=== PATIENT | male | born 1985 | race African-American/Black ===

== ENCOUNTER 2023-07-16 17:49 | Emergency (ER) | payer OTHER ==
[2023-07-16 18:11] VITALS: BP 135/84; PULSE 85; RESP 20; TEMP 98.4; BMI 39.0
[2023-07-16] MEDS ORDERED: PHENYLEPHRINE HCL 10 MG/1 ML SINGLE DOSE VIAL NR ONE (18:57)
[2023-07-16] MEDS ORDERED: PHENYLEPHRINE HCL 10 MG/1 ML SINGLE DOSE VIAL ONE ×2 (19:05→19:08)
[2023-07-16] MEDS ORDERED: LIDOCAINE HCL 1%, 10 MG/ML (20ML VIAL) ONE ×2 (19:17→21:13)
[2023-07-16 20:21] LABS: VENOUS BASE EXCESS -19.4 mmol/L (-2-2)
[2023-07-16 20:24] LABS: VENOUS PCO2 87.7 mmHg (38-52); VENOUS PH 6.875 (7.310-7.410)
[2023-07-16] MEDS ORDERED: LACTATED RINGERS SOLUTION 1000 ML INFUS.BAG IV ONE (20:52)
[2023-07-16] MEDS ORDERED: LIDOCAINE HCL 1%, 10 MG/ML (50 mL VIAL) NR ONE (21:06)
[2023-07-16 22:07] LABS: BASO % 0.4 % (0-2.0); EOS % 2.5 % (0-4.5); HEMATOCRIT 37.9 % (35.4-49); LYMPH % 35.8 % (8-40); MCH 27.6 pg (25.7-33.7); MCHC 34.3 g/dl (32.0-35.9); MEAN CELL VOLUME 80.5 fl (80-96); MEAN PLT VOLUME 7.1 fl (7.5-11.1); MONO % 5.8 % (3.8-10.2); NEUT % 55.5 % (42.8-82.8); PLATELET COUNT 249 10^3/uL (134-434); RBC 4.71 M/mm3 (4.00-5.60); RDW 14.9 % (11.9-15.9); WHITE BLOOD COUNT 5.8 K/mm3 (4.0-10.0)
[2023-07-16 22:08] LABS: EPI CELLS 1 /uL (0-25.1); HYALINE CASTS 0 /uL (0-3.1); PH,URINE 6.5 (5.0-8.0); URINE APPEARANCE CLEAR; URINE BACTERIA 0 /uL (0-1359); URINE BILIRUBIN NEGATIVE (NEGATIVE); URINE COLOR YELLOW; URINE GLUCOSE (UA) NEGATIVE (NEGATIVE); URINE KETONE NEGATIVE (NEGATIVE); URINE LEUK ESTERASE NEGATIVE (NEGATIVE); URINE NITRITE NEGATIVE (NEGATIVE); URINE PROTEIN NEGATIVE (NEGATIVE); URINE RBC 37 /uL (0-23.9); URINE UROBILINOGEN 0.2 mg/dL (0.2-1.0); URINE WBC 1 /uL (0-25.8)
[2023-07-16 22:12] LABS: INR 1.19 (0.83-1.09); PROTHROMBIN TIME (PATIENT) 13.8 SEC (9.7-13.0)
[2023-07-16 22:19] LABS: POTASSIUM 3.8 mmol/L (3.5-5.1)
[2023-07-16 22:20] LABS: CALCIUM 8.5 mg/dL (8.5-10.1)
[2023-07-16 22:22] LABS: ALBUMIN 4.2 g/dl (3.4-5.0); BLOOD UREA NITROGEN 7.8 mg/dL (7-18)
[2023-07-16 22:23] LABS: CREATININE 0.9 mg/dL (0.55-1.3)
[2023-07-16 22:25] LABS: BILIRUBIN,TOTAL 0.5 mg/dL (0.2-1)
== END 2023-07-17 01:16 | disposition home or self-care (01) ==
LOC: JER 17:49
PROC: 0V9SXZZ Drainage of Penis, External Approach (ICD-10-PCS; principal; 2023-07-16)
DX: N48.30 Priapism, unspecified (principal); S83.90XA Sprain of unspecified site of unspecified knee, initial encounter; M25.569 Pain in unspecified knee; M72.2 Plantar fascial fibromatosis; N48.89 Other specified disorders of penis; J40 Bronchitis, not specified as acute or chronic; X58.XXXA Exposure to other specified factors, initial encounter
CPT/HCPCS: 36415; 80053; 81003; 82803; 85025; 85610; 86850; 86900; 86901; 99285-25

== ENCOUNTER 2024-10-12 05:24 | Day surgery (SDC) | payer BC, OTHER ==
[2024-10-10 11:51] VITALS: BMI 38.3
[2024-10-12 12:20] VITALS: RESP 18
[2024-10-12] MEDS: ceFAZolin SODIUM 1 GM VIAL IVPB ONE (13:35)
[2024-10-12] MEDS ORDERED: GENTAMICIN SO4 80 MG/2 ML VIAL ONE (14:09)
[2024-10-12] MEDS ORDERED: VANCOMYCIN 1,000 MG VIAL (RESTRICTED TO ID ONLY) ONE (14:09)
[2024-10-12] MEDS ORDERED: ROCURONIUM BROMIDE 50 MG/5 ML SYRINGE ONE (14:50)
[2024-10-12] MEDS ORDERED: PROPOFOL 40 ML ONE (14:50)
[2024-10-12] MEDS ORDERED: MIDAZOLAM HCL 2 MG/2 ML SINGLE DOSE VIAL ONE (14:50)
[2024-10-12] MEDS ORDERED: LIDOCAINE HCL 2% 100 MG/5 ML DISP.SYRIN ONE (14:51)
[2024-10-12] MEDS ORDERED: ONDANSETRON 4 MG/2 ML VIAL ONE (14:51)
[2024-10-12] MEDS ORDERED: ceFAZolin SODIUM 1 GM VIAL ONE (14:51)
[2024-10-12] MEDS ORDERED: DEXAMETHASONE SOD PHOSPHATE 4 MG/1 ML VIAL ONE (14:51)
[2024-10-12] MEDS ORDERED: ONDANSETRON 4 MG/2 ML VIAL IVPUSH PRN (15:07)
[2024-10-12] MEDS ORDERED: LACTATED RINGERS SOLUTION 1,000 ML IV SCH (15:15)
[2024-10-12] MEDS: BUPIVACAINE HCL/PF 0.5% (5MG/ML) 10 ML VIAL IJ ONE ×2 (15:43)
[2024-10-12] MEDS: LIDOCAINE HCL 1%, 10 MG/ML (50 mL VIAL) INF ONE ×2 (15:43)
[2024-10-12] MEDS: ACETAMINOPHEN 1000 MG/100 ML BAG IVPB ONE (17:37)
[2024-10-12] MEDS ORDERED: oxyCODONE HCL 5 MG TABLET ONE (19:01)
[2024-10-12] MEDS: oxyCODONE HCL 5 MG TABLET PO PRN (19:01)
[2024-10-12 20:01] VITALS: BP 136/81; PULSE 87; TEMP 97.3
== END 2024-10-12 21:05 | disposition home or self-care (01) ==
LOC: JASU-SURG 05:24 → JASUSAT 05:24 → J5S 19:42 → JASUSAT 21:05
PROVIDERS: ATTEND Urology
PROC: 0VUS0JZ Supplement Penis with Synthetic Substitute, Open Approach (ICD-10-PCS; principal; 2024-10-12 14:00)
DX: N52.8 Other male erectile dysfunction (principal); N48.39 Other priapism
CPT/HCPCS: 54405; C1813; 82962; 94760; J0131